=== PATIENT | male | born 1980 | race African-American/Black ===

== ENCOUNTER 2017-01-20 12:06 | Emergency (ER) | payer OTHER ==
[~2017-01-20] VITALS: Ht 175.3 cm; Wt 90.9 kg
[2017-01-20 14:22] VITALS: BP 135/83
[2017-01-20 14:33] LABS: APPEARANCE,URINE CLEAR (CLEAR); GLUCOSE, URINE (UA) NEGATIVE (NEGATIVE); KETONES,URINE NEGATIVE (NEGATIVE); LEUKOCYTE ESTERASE ,URINE NEGATIVE (NEGATIVE); OCCULT BLOOD,URINE SMALL (NEGATIVE); PROTEIN,URINE NEGATIVE (NEGATIVE)
[2017-01-20 14:34] LABS: SQUAMOUS EPITHELIAL CELL,UR Few /LPF (None Seen); WBC,URINE None Seen /HPF (0-5)
== END 2017-01-20 14:54 | disposition home or self-care (01) ==
LOC: EMS 12:08
DX: A64 Unspecified sexually transmitted disease (principal); F12.90 Cannabis use, unspecified, uncomplicated
CPT/HCPCS: 99283

== ENCOUNTER 2017-04-09 15:54 | Emergency (ER) | payer OTHER | END 2017-04-09 16:16 | disposition left against medical advice (07) | LOC: EMS 15:57 | DX: Z53.21 Procedure and treatment not carried out due to patient leaving prior to being seen by health care provider (principal) ==

== ENCOUNTER 2018-11-01 06:36 | Emergency (ER) | payer MEDICAID, OTHER ==
[~2018-11-01] VITALS: Ht 175.3 cm; Wt 86.4 kg
[2018-11-01 07:45] VITALS: BP 144/84
[2018-11-01] MEDS ORDERED: AZITHROMYCIN 250 MG TABLET PO ONE (07:45)
[2018-11-01] MEDS ORDERED: CefTRIAXone SODIUM 1 GM/VIAL IM ONE (07:45)
== END 2018-11-01 08:26 | disposition home or self-care (01) ==
LOC: EMS 06:36
DX: N34.2 Other urethritis (principal); F12.90 Cannabis use, unspecified, uncomplicated
CPT/HCPCS: 96372; 99283; J0696

== ENCOUNTER 2019-11-14 20:51 | Emergency (ER) | payer SELFPAY ==
[~2019-11-14] VITALS: Ht 175.3 cm; Wt 86.4 kg
[2019-11-14 21:45] VITALS: BP 148/101
[2019-11-14] MEDS ORDERED: IBUPROFEN 600 MG TABLET PO ONE (22:30)
[2019-11-14] MEDS ORDERED: ACETAMINOPHEN 500 MG TABLET PO ONE (22:30)
== END 2019-11-14 23:06 | disposition home or self-care (01) ==
LOC: EMS 21:03
DX: R51 Headache (principal); F17.210 Nicotine dependence, cigarettes, uncomplicated; F12.90 Cannabis use, unspecified, uncomplicated
CPT/HCPCS: 99406

== ENCOUNTER 2019-12-09 18:55 | Emergency (ER) | payer SELFPAY ==
[~2019-12-09] VITALS: Ht 175.3 cm; Wt 86.4 kg
[2019-12-09 18:56] VITALS: BP 147/92
== END 2019-12-09 20:13 | disposition left against medical advice (07) ==
LOC: EMS 18:56
DX: T78.1XXA Other adverse food reactions, not elsewhere classified, initial encounter (principal); Z53.21 Procedure and treatment not carried out due to patient leaving prior to being seen by health care provider; X58.XXXA Exposure to other specified factors, initial encounter

== ENCOUNTER 2019-12-09 21:16 | Emergency (ER) | payer MEDICAID ==
[~2019-12-09] VITALS: Ht 175.3 cm; Wt 86.4 kg
[2019-12-09 22:30] VITALS: BP 127/70
== END 2019-12-09 23:00 | disposition home or self-care (01) ==
LOC: EMS 21:17
DX: T78.1XXA Other adverse food reactions, not elsewhere classified, initial encounter (principal); F19.10 Other psychoactive substance abuse, uncomplicated; X58.XXXA Exposure to other specified factors, initial encounter; Z91.010 Allergy to peanuts

== ENCOUNTER 2020-01-05 10:52 | Emergency (ER) | payer MEDICAID ==
[~2020-01-05] VITALS: Ht 175.3 cm; Wt 84.1 kg
[2020-01-05 11:07] VITALS: BP 132/37
[2020-01-05] MEDS ORDERED: IBUPROFEN 400 MG TABLET PO ONE (11:45)
== END 2020-01-05 12:33 | disposition home or self-care (01) ==
LOC: EMS 10:54
DX: R51 Headache (principal); R42 Dizziness and giddiness; J45.909 Unspecified asthma, uncomplicated; F12.90 Cannabis use, unspecified, uncomplicated; Z91.010 Allergy to peanuts

== ENCOUNTER 2020-02-26 20:37 | Emergency (ER) | payer SELFPAY | END 2020-02-26 20:45 | disposition left against medical advice (07) | LOC: EMS 20:38 | DX: R51 Headache (principal); Z53.21 Procedure and treatment not carried out due to patient leaving prior to being seen by health care provider ==

== ENCOUNTER 2022-02-01 00:16 | Inpatient (IN) | payer OTHER ==
[2022-02-01] VITALS (11 sets, daily range): BP systolic 162–178; BP diastolic 98–115
[~2022-02-01] VITALS: Ht 175.3 cm; Wt 75.0 kg
[2022-02-01 00:50] LABS: BASOPHILS % (AUTO) 2.4 % (0.0-2.0); EOSINOPHILS % (AUTO) 6.5 % (1.0-6.0); HEMATOCRIT 34.5 % (41-53); HEMOGLOBIN 11.5 g/dL (13.5-17.5); MEAN CORPUSCULAR HEMOGLOBIN 30.9 pg (26.0-34.0); MEAN CORPUSCULAR HGB CONC 33.2 G/dL (31.0-37.0); MEAN CORPUSCULAR VOLUME 93 fL (80-100); MONOCYTES # (AUTO) 0.4 K/uL (0.1-1.0); MONOCYTES % (AUTO) 8.5 % (2.0-9.0); NEUTROPHILS # (AUTO) 2.8 K/uL (1.8-7.7); NEUTROPHILS % (AUTO) 60.6 % (40.0-70.0); PLATELET COUNT (AUTO) 163 K/uL (150-450); RED BLOOD CELL COUNT(AUTO) 3.71 MIL/uL (4.50-5.90); RED CELL DISTRIBUTION WIDTH 18.8 % (11.5-14.5)
[2022-02-01 01:00] LABS: INR 1.1 (0.9-1.1); PROTHROMBIN TIME 11.7 SEC (9.4-11.6)
[2022-02-01 01:02] LABS: ALBUMIN 3.6 g/dL (3.4-5.0); BILIRUBIN,TOTAL 0.5 mg/dL (0.1-1.0); CALCIUM, TOTAL 8.3 mg/dL (8.8-10.5); CREATININE 16.86 mg/dL (0.60-1.30); TOTAL PROTEIN, SERUM 7.3 g/dL (6.4-8.2)
[2022-02-01 01:08] LABS: POTASSIUM 6.6 mmol/L (3.5-5.1)
[2022-02-01] MEDS ORDERED: DEXTROSE 50%-WATER 25 GM/50 ML SYRINGE IVP ONE ×2 (01:15→03:30)
[2022-02-01] MEDS ORDERED: INSULIN REGULAR, HUMAN 100 UNITS/ML IVP ONE (01:15)
[2022-02-01] MEDS ORDERED: FUROSEMIDE 40 MG/4 ML VIAL IVP ONE (01:15)
[2022-02-01] MEDS ORDERED: CALCIUM GLUCONATE 1,000 MG in DEXTROSE 5%-WATER 50 ML IV ONE (01:15)
[2022-02-01] MEDS ORDERED: OxyCODONE HCL/ACETAMINOPHEN 5-325 MG TABLET PO ONE (02:15)
[2022-02-01 03:15] LABS: CALCIUM, TOTAL 8.8 mg/dL (8.8-10.5); CREATININE 17.19 mg/dL (0.60-1.30); POTASSIUM 5.7 mmol/L (3.5-5.1)
[2022-02-01 05:26] LABS: GLUCOMETER DEV NAME(LOC) ERT.5; GLUCOSE,POINT OF CARE 84 MG/DL (70-110)
[2022-02-01] MEDS: VITAMIN B COMP/VIT C/FOLIC ACID CAPSULE PO SCH (15:05)
[2022-02-01 20:31] LABS: GLUCOMETER DEV NAME(LOC) ERT.5; GLUCOSE,POINT OF CARE 94 MG/DL (70-110)
[2022-02-01] MEDS ORDERED: IPRATROPIUM BROMIDE 0.5 MG/2.5 ML NEB SOLUTION NEB PRN (23:00)
[2022-02-01] MEDS ORDERED: BISACODYL 10 MG RECTAL RECTAL SUPPOSITORY PR PRN (23:00)
[2022-02-01] MEDS ORDERED: HYDROCODONE/ACETAMINOPHEN 5-325 MG TABLET PO PRN (23:00)
[2022-02-01] MEDS ORDERED: MORPHINE SULFATE 2 MG/ML SYRINGE IVP PRN (23:00)
[2022-02-01] MEDS ORDERED: ONDANSETRON HCL 4 MG/2 ML VIAL IVP PRN (23:00)
[2022-02-01] MEDS ORDERED: ALBUTEROL SULFATE 2.5 MG/0.5 ML NEB SOLUTION NEB PRN (23:00)
[2022-02-01] MEDS ORDERED: MAGNESIUM HYDROXIDE SUSPENSION 30 ML UDCUP PO PRN (23:00)
[2022-02-01] MEDS ORDERED: ZOLPIDEM TARTRATE 5 MG TABLET PO PRN (23:00)
[2022-02-01] MEDS: METOPROLOL TARTRATE 50 MG TABLET PO SCH (23:09)
[2022-02-01] MEDS: CloNIDine HCL 0.1 MG TABLET PO SCH (23:10)
[2022-02-01] MEDS: DOCUSATE SODIUM 100 MG CAPSULE PO SCH (23:10)
[2022-02-01] MEDS: BENZONATATE 100 MG CAPSULE PO SCH (23:10)
[2022-02-01] MEDS: ACETAMINOPHEN 325 MG TABLET PO PRN (23:11)
[2022-02-01] MEDS: HEPARIN SODIUM,PORCINE 5,000 UNITS/ML VIAL SQ SCH (23:59)
[2022-02-02] VITALS (14 sets, daily range): BP systolic 137–174; BP diastolic 75–124
[2022-02-02] MEDS: HEPARIN SODIUM,PORCINE 5,000 UNITS/ML VIAL SQ SCH ×2 (08:00→16:00)
[2022-02-02] MEDS: BENZONATATE 100 MG CAPSULE PO SCH ×2 (08:00→16:00)
[2022-02-02 08:11] LABS: CREATININE 13.61 mg/dL (0.60-1.30); MAGNESIUM 2.2 mg/dL (1.80-2.40); PHOSPHORUS 6.3 mg/dL (2.5-4.9)
[2022-02-02 08:17] LABS: POTASSIUM 6.4 mmol/L (3.5-5.1)
[2022-02-02] MEDS ORDERED: CALCIUM GLUCONATE 100 MG/ML 10 ML IVP ONE (08:45)
[2022-02-02] MEDS ORDERED: DEXTROSE 50%-WATER 25 GM/50 ML SYRINGE IVP ONE (08:45)
[2022-02-02] MEDS ORDERED: INSULIN REGULAR, HUMAN 100 UNITS/ML IVP ONE (08:45)
[2022-02-02] MEDS: CloNIDine HCL 0.1 MG TABLET PO SCH ×2 (09:00→21:00)
[2022-02-02] MEDS ORDERED: PANTOPRAZOLE SODIUM 40 MG/VIAL IVP SCH (09:00)
[2022-02-02] MEDS: METOPROLOL TARTRATE 50 MG TABLET PO SCH ×3 (09:00→22:43)
[2022-02-02] MEDS: VITAMIN B COMP/VIT C/FOLIC ACID CAPSULE PO SCH (09:13)
[2022-02-02] MEDS: DOCUSATE SODIUM 100 MG CAPSULE PO SCH ×2 (09:14→22:43)
[2022-02-02] MEDS ORDERED: NIFEdipine 60 MG ER TABLET PO SCH (21:00)
[2022-02-02] MEDS: ACETAMINOPHEN 325 MG TABLET PO PRN (23:57)
[2022-02-03] MEDS: HEPARIN SODIUM,PORCINE 5,000 UNITS/ML VIAL SQ SCH
[2022-02-03] MEDS: BENZONATATE 100 MG CAPSULE PO SCH
[2022-02-03] MEDS ORDERED: HYDROCODONE/ACETAMINOPHEN 5-325 MG TABLET PO PRN (03:30)
[2022-02-03 07:24] VITALS: BP 126/87
[2022-02-04 06:27] LABS: GLUCOMETER DEV NAME(LOC) 5S.2B; GLUCOSE,POINT OF CARE 124 MG/DL (70-110)
== END 2022-02-03 10:35 | disposition left against medical advice (07) | DRG 194 ==
LOC: EMS 00:20 → 5S 19:58
PROVIDERS: ADMIT Hospitalist; ATTEND Hospitalist
PROC: 5A1D70Z Performance of Urinary Filtration, Intermittent, Less than 6 Hours Per Day (ICD-10-PCS; principal; 2022-02-01)
PROC: 5A1D70Z Performance of Urinary Filtration, Intermittent, Less than 6 Hours Per Day (ICD-10-PCS; 2022-02-02)
DX: I13.2 Hypertensive heart and chronic kidney disease with heart failure and with stage 5 chronic kidney disease, or end stage renal disease (principal); N18.6 End stage renal disease; E87.5 Hyperkalemia; D64.9 Anemia, unspecified; I50.9 Heart failure, unspecified; J45.909 Unspecified asthma, uncomplicated; Z53.29 Procedure and treatment not carried out because of patient's decision for other reasons; Z88.8 Allergy status to other drugs, medicaments and biological substances; Z99.2 Dependence on renal dialysis; Z91.010 Allergy to peanuts
CPT/HCPCS: 71045; 80048; 80053; 82962; 83735; 83880; 84100; 84132; 84484; 85025; 85610; 85730; 87340; 90935; 93005; 99291; C9113; G0378; J0610; J1644; J1815; J1940; J7060; 36415-L1; 36415-TC

== ENCOUNTER 2022-02-08 23:03 | Emergency (ER) | payer OTHER ==
[~2022-02-08] VITALS: Ht 175.3 cm; Wt 75.0 kg
[2022-02-09] VITALS (9 sets, daily range): BP systolic 131–152; BP diastolic 64–85
[2022-02-09 00:48] LABS: EOSINOPHILS % (AUTO) 0.9 % (1.0-6.0); HEMATOCRIT 33.8 % (41-53); HEMOGLOBIN 11.2 g/dL (13.5-17.5); LYMPHOCYTES # (AUTO) 0.8 K/uL (1.0-4.8); LYMPHOCYTES % (AUTO) 16.8 % (22.0-44.0); MEAN CORPUSCULAR HEMOGLOBIN 30.5 pg (26.0-34.0); MEAN CORPUSCULAR VOLUME 92 fL (80-100); MONOCYTES # (AUTO) 0.4 K/uL (0.1-1.0); MONOCYTES % (AUTO) 7.3 % (2.0-9.0); NEUTROPHILS # (AUTO) 3.6 K/uL (1.8-7.7); PLATELET COUNT (AUTO) 252 K/uL (150-450); RED BLOOD CELL COUNT(AUTO) 3.66 MIL/uL (4.50-5.90); RED CELL DISTRIBUTION WIDTH 18.8 % (11.5-14.5)
[2022-02-09 00:59] LABS: ALBUMIN 3.9 g/dL (3.4-5.0); BILIRUBIN,TOTAL 0.4 mg/dL (0.1-1.0); CALCIUM, TOTAL 8.4 mg/dL (8.8-10.5); CREATININE 14.27 mg/dL (0.60-1.30); TOTAL PROTEIN, SERUM 7.8 g/dL (6.4-8.2)
[2022-02-09 01:01] LABS: POTASSIUM 7.2 mmol/L (3.5-5.1)
[2022-02-09] MEDS ORDERED: ALBUTEROL SULFATE 5 MG/ML 20 ML NEB SOLN [BULK] NEB ONE (01:15)
[2022-02-09] MEDS ORDERED: FUROSEMIDE 40 MG/4 ML VIAL IVP ONE (01:15)
[2022-02-09] MEDS ORDERED: CALCIUM GLUCONATE 100 MG/ML 10 ML IVP ONE (01:15)
[2022-02-09] MEDS ORDERED: INSULIN REGULAR, HUMAN 100 UNITS/ML IVP ONE (01:15)
[2022-02-09] MEDS ORDERED: DEXTROSE 50%-WATER 25 GM/50 ML SYRINGE IVP ONE (01:15)
[2022-02-09 01:23] LABS: MAGNESIUM 2.7 mg/dL (1.80-2.40); PHOSPHORUS 5.6 mg/dL (2.5-4.9)
[2022-02-09 02:21] LABS: GLUCOMETER DEV NAME(LOC) ERT.5; GLUCOSE,POINT OF CARE 89 MG/DL (70-110)
[2022-02-09] MEDS ORDERED: ACETAMINOPHEN 325 MG TABLET PO PRN (02:45)
[2022-02-09] MEDS ORDERED: SODIUM POLYSTYRENE SULFONATE 15 GM/60 ML SUSPENSION BOTTLE PO ONE (02:45)
[2022-02-09] MEDS ORDERED: AmLODIPine BESYLATE 5 MG TABLET PO ONE (02:45)
[2022-02-09] MEDS ORDERED: ONDANSETRON HCL 4 MG/2 ML VIAL IVP PRN (02:45)
[2022-02-09 07:32] LABS: CALCIUM, TOTAL 8.2 mg/dL (8.8-10.5); CREATININE 6.63 mg/dL (0.60-1.30); POTASSIUM 3.2 mmol/L (3.5-5.1)
[2022-02-09 07:34] LABS: COVID AG,FIA SOURCE NASOPHARYNGEAL
[2022-02-09] MEDS ORDERED: HEPARIN SODIUM,PORCINE 5,000 UNITS/ML VIAL SQ SCH (08:00)
== END 2022-02-09 09:37 | disposition left against medical advice (07) ==
LOC: EMS 23:05
DX: E87.5 Hyperkalemia (principal); J45.909 Unspecified asthma, uncomplicated; M31.30 Wegener's granulomatosis without renal involvement; N18.6 End stage renal disease; Z99.2 Dependence on renal dialysis; Z91.010 Allergy to peanuts; Z88.8 Allergy status to other drugs, medicaments and biological substances; Z20.822 Contact with and (suspected) exposure to COVID-19
CPT/HCPCS: 36415; 71045; 80048; 80053; 82962; 83735; 83880; 84100; 84484; 85025; 87340; 87426; 93005; 94640; 96372; 96374; 96375; 99291; J0610; J1644; J1815; J1940; 90935; 94644; J7611

== ENCOUNTER 2022-02-16 07:24 | Inpatient (IN) | payer OTHER ==
[~2022-02-16] VITALS: Ht 175.3 cm; Wt 75.5 kg
[2022-02-16] VITALS (12 sets, daily range): BP systolic 154–181; BP diastolic 89–130
[2022-02-16 08:10] LABS: BASOPHILS % (AUTO) 0.5 % (0.0-2.0); EOSINOPHILS % (AUTO) 4.4 % (1.0-6.0); HEMATOCRIT 33.9 % (41-53); HEMOGLOBIN 11.1 g/dL (13.5-17.5); LYMPHOCYTES % (AUTO) 18.9 % (22.0-44.0); MEAN CORPUSCULAR HEMOGLOBIN 30.1 pg (26.0-34.0); MEAN CORPUSCULAR HGB CONC 32.7 G/dL (31.0-37.0); MEAN CORPUSCULAR VOLUME 92 fL (80-100); MONOCYTES # (AUTO) 0.4 K/uL (0.1-1.0); MONOCYTES % (AUTO) 7.9 % (2.0-9.0); NEUTROPHILS # (AUTO) 3.8 K/uL (1.8-7.7); NEUTROPHILS % (AUTO) 68.3 % (40.0-70.0); PLATELET COUNT (AUTO) 225 K/uL (150-450); RED BLOOD CELL COUNT(AUTO) 3.67 MIL/uL (4.50-5.90); RED CELL DISTRIBUTION WIDTH 18.8 % (11.5-14.5)
[2022-02-16 08:26] LABS: INR 1.1 (0.9-1.1); PROTHROMBIN TIME 11.9 SEC (9.4-11.6)
[2022-02-16 08:43] LABS: ALBUMIN 3.4 g/dL (3.4-5.0); BILIRUBIN,TOTAL 0.5 mg/dL (0.1-1.0); CALCIUM, TOTAL 7.5 mg/dL (8.8-10.5); CREATININE 14.53 mg/dL (0.60-1.30); TOTAL PROTEIN, SERUM 6.9 g/dL (6.4-8.2)
[2022-02-16 08:44] LABS: POTASSIUM 7.6 mmol/L (3.5-5.1)
[2022-02-16] MEDS ORDERED: INSULIN REGULAR, HUMAN 100 UNITS/ML IVP ONE (08:45)
[2022-02-16] MEDS ORDERED: CALCIUM GLUCONATE 0.465 MEQ/ML 10 ML VIAL IVP ONE (08:45)
[2022-02-16] MEDS ORDERED: NITROGLYCERIN 2% (1 GM=INCH) PACKET TP ONE (08:45)
[2022-02-16] MEDS ORDERED: FUROSEMIDE 20 MG/2 ML VIAL IVP ONE (08:45)
[2022-02-16] MEDS ORDERED: SODIUM BICARBONATE [ADULT] 8.4% 50 MEQ/50 ML SYRINGE IVP ONE (08:45)
[2022-02-16] MEDS ORDERED: ALBUTEROL SULFATE 2.5 MG/0.5 ML NEB SOLUTION NEB ONE (08:45)
[2022-02-16] MEDS ORDERED: DEXTROSE 50%-WATER 25 GM/50 ML SYRINGE IVP ONE ×3 (08:45→09:30)
[2022-02-16] MEDS ORDERED: SODIUM CHLORIDE 0.9% 1,000 ML ONE (10:35)
[2022-02-16] MEDS ORDERED: CloNIDine HCL 0.1 MG TABLET PO PRN (12:15)
[2022-02-16] MEDS ORDERED: MORPHINE SULFATE 2 MG/ML SYRINGE IVP PRN (15:15)
[2022-02-16] MEDS ORDERED: MAGNESIUM HYDROXIDE SUSPENSION 30 ML UDCUP PO PRN (15:15)
[2022-02-16] MEDS ORDERED: ZOLPIDEM TARTRATE 5 MG TABLET PO PRN (15:15)
[2022-02-16] MEDS ORDERED: ONDANSETRON HCL 4 MG/2 ML VIAL IVP PRN (15:15)
[2022-02-16] MEDS ORDERED: HYDROCODONE/ACETAMINOPHEN 5-325 MG TABLET PO PRN (15:15)
[2022-02-16] MEDS ORDERED: BISACODYL 10 MG RECTAL RECTAL SUPPOSITORY PR PRN (15:15)
[2022-02-16] MEDS ORDERED: ACETAMINOPHEN 325 MG TABLET PO PRN (15:15)
[2022-02-16] MEDS ORDERED: HEPARIN SODIUM,PORCINE 5,000 UNITS/ML VIAL SQ SCH (16:00)
[2022-02-16] MEDS ORDERED: DOCUSATE SODIUM 100 MG CAPSULE PO SCH (21:00)
[2022-02-17] MEDS ORDERED: PANTOPRAZOLE SODIUM 40 MG DR TABLET PO SCH (09:00)
== END 2022-02-16 19:00 | disposition left against medical advice (07) | DRG 194 ==
LOC: EMS 07:24 → 5S 09:37
PROVIDERS: ADMIT Internal Medicine; ATTEND Internal Medicine
PROC: 5A1D70Z Performance of Urinary Filtration, Intermittent, Less than 6 Hours Per Day (ICD-10-PCS; principal; 2022-02-16)
DX: I13.2 Hypertensive heart and chronic kidney disease with heart failure and with stage 5 chronic kidney disease, or end stage renal disease (principal); N17.9 Acute kidney failure, unspecified; D63.1 Anemia in chronic kidney disease; I50.31 Acute diastolic (congestive) heart failure; N18.6 End stage renal disease; E87.5 Hyperkalemia; J45.909 Unspecified asthma, uncomplicated; Z99.2 Dependence on renal dialysis; Z53.29 Procedure and treatment not carried out because of patient's decision for other reasons; Z88.8 Allergy status to other drugs, medicaments and biological substances; Z91.010 Allergy to peanuts
CPT/HCPCS: 71045; 80053; 82550; 83880; 84132; 84484; 85025; 85610; 85730; 87340; 90935; 93005; 99285; J0610; J1815; J1940; J3490; J7030; 36415-L1; 36415-TC; J7613

== ENCOUNTER 2022-07-19 20:29 | Emergency (ER) | payer OTHER ==
[~2022-07-19] VITALS: Ht 175.3 cm; Wt 73.0 kg
[2022-07-19] MEDS ORDERED: CLON0.1T2 PO (20:41)
[2022-07-19] MEDS ORDERED: LOSA-382 PO (20:41)
[2022-07-19] MEDS ORDERED: METO50 PO (20:41)
[2022-07-19] MEDS ORDERED: LOSA100T58 PO (20:41)
[2022-07-19 21:55] LABS: BASOPHILS % (AUTO) 1.2 % (0.0-2.0); EOSINOPHILS % (AUTO) 6.4 % (1.0-6.0); HEMATOCRIT 28.6 % (41-53); HEMOGLOBIN 9.3 g/dL (13.5-17.5); LYMPHOCYTES # (AUTO) 0.9 K/uL (1.0-4.8); LYMPHOCYTES % (AUTO) 23.1 % (22.0-44.0); MEAN CORPUSCULAR HGB CONC 32.6 G/dL (31.0-37.0); MEAN CORPUSCULAR VOLUME 95 fL (80-100); MONOCYTES # (AUTO) 0.2 K/uL (0.1-1.0); MONOCYTES % (AUTO) 5.7 % (2.0-9.0); NEUTROPHILS # (AUTO) 2.5 K/uL (1.8-7.7); NEUTROPHILS % (AUTO) 63.6 % (40.0-70.0); PLATELET COUNT (AUTO) 156 K/uL (150-450); RED BLOOD CELL COUNT(AUTO) 3.02 MIL/uL (4.50-5.90); RED CELL DISTRIBUTION WIDTH 15.4 % (11.5-14.5)
[2022-07-19 22:03] LABS: INR 1.1 (0.9-1.1); MAGNESIUM 2.7 mg/dL (1.80-2.40); PROTHROMBIN TIME 11.8 SEC (9.4-11.6)
[2022-07-19 22:06] LABS: ALBUMIN 3.8 g/dL (3.4-5.0); BILIRUBIN,TOTAL 0.4 mg/dL (0.1-1.0); CALCIUM, TOTAL 8.7 mg/dL (8.8-10.5); TOTAL PROTEIN, SERUM 7.6 g/dL (6.4-8.2)
[2022-07-19 22:11] LABS: CREATININE 31.83 mg/dL (0.60-1.30); POTASSIUM 8.1 mmol/L (3.5-5.1)
[2022-07-19 22:20] LABS: PLATELET MORPHOLOGY COMMENT LARGE PLTS PRESENT
[2022-07-19] MEDS ORDERED: INSULIN REGULAR, HUMAN 100 UNITS/ML IVP ONE (22:30)
[2022-07-19] MEDS ORDERED: ALBUTEROL SULFATE 5 MG/ML 20 ML NEB SOLN [BULK] NEB ONE (22:30)
[2022-07-19] MEDS ORDERED: DEXTROSE 50%-WATER 25 GM/50 ML SYRINGE IVP ONE (22:30)
[2022-07-19] MEDS ORDERED: SODIUM ZIRCONIUM CYCLOSILICATE 5 GM POWDER PACKET PO ONE (22:30)
[2022-07-19] MEDS ORDERED: CALCIUM GLUCONATE 1,000 MG in DEXTROSE 5%-WATER 50 ML IV ONE (22:30)
[2022-07-19] MEDS ORDERED: ZOLPIDEM TARTRATE 5 MG TABLET PO PRN (22:45)
[2022-07-19] MEDS ORDERED: MAGNESIUM HYDROXIDE SUSPENSION 30 ML UDCUP PO PRN (22:45)
[2022-07-19] MEDS ORDERED: MORPHINE SULFATE 2 MG/ML SYRINGE IVP PRN (22:45)
[2022-07-19] MEDS ORDERED: BISACODYL 10 MG RECTAL RECTAL SUPPOSITORY PR PRN (22:45)
[2022-07-19] MEDS ORDERED: ONDANSETRON HCL 4 MG/2 ML VIAL IVP PRN (22:45)
[2022-07-19] MEDS ORDERED: SODIUM POLYSTYRENE SULFONATE 15 GM/60 ML SUSPENSION BOTTLE PO ONE (22:45)
[2022-07-19] MEDS ORDERED: ACETAMINOPHEN 325 MG TABLET PO PRN (22:45)
[2022-07-19] MEDS ORDERED: HYDROCODONE/ACETAMINOPHEN 5-325 MG TABLET PO PRN (22:45)
[2022-07-19 23:08] LABS: COVID AG,FIA SOURCE NASAL SWAB
[2022-07-20] MEDS ORDERED: HEPARIN SODIUM,PORCINE 5,000 UNITS/ML VIAL SQ SCH
[2022-07-20 04:55] LABS: EOSINOPHILS % (AUTO) 7.6 % (1.0-6.0); HEMOGLOBIN 8.4 g/dL (13.5-17.5); LYMPHOCYTES # (AUTO) 0.8 K/uL (1.0-4.8); LYMPHOCYTES % (AUTO) 20.5 % (22.0-44.0); MEAN CORPUSCULAR HEMOGLOBIN 31.2 pg (26.0-34.0); MEAN CORPUSCULAR HGB CONC 33.6 G/dL (31.0-37.0); MEAN CORPUSCULAR VOLUME 93 fL (80-100); MONOCYTES # (AUTO) 0.4 K/uL (0.1-1.0); MONOCYTES % (AUTO) 9.9 % (2.0-9.0); NEUTROPHILS # (AUTO) 2.3 K/uL (1.8-7.7); PLATELET COUNT (AUTO) 153 K/uL (150-450); RED CELL DISTRIBUTION WIDTH 15.7 % (11.5-14.5)
[2022-07-20] MEDS ORDERED: METOPROLOL TARTRATE 50 MG TABLET PO ONE (05:00)
[2022-07-20] MEDS ORDERED: LOSARTAN POTASSIUM 50 MG TABLET PO ONE (05:00)
[2022-07-20] MEDS ORDERED: CloNIDine HCL 0.1 MG TABLET PO ONE (05:00)
[2022-07-20 05:03] LABS: CALCIUM, TOTAL 8.7 mg/dL (8.8-10.5); CREATININE 14.91 mg/dL (0.60-1.30); POTASSIUM 3.8 mmol/L (3.5-5.1)
[2022-07-20 05:16] LABS: PLATELET MORPHOLOGY COMMENT LARGE PLTS PRESENT
[2022-07-20 05:17] VITALS: BP 172/105
[2022-07-20] MEDS ORDERED: METOPROLOL TARTRATE 50 MG TABLET PO SCH (09:00)
[2022-07-20] MEDS ORDERED: DOCUSATE SODIUM 100 MG CAPSULE PO SCH (09:00)
[2022-07-20] MEDS ORDERED: LOSARTAN POTASSIUM 50 MG TABLET PO SCH (09:00)
[2022-07-20] MEDS ORDERED: PANTOPRAZOLE SODIUM 40 MG DR TABLET PO SCH (09:00)
[2022-07-20] MEDS ORDERED: CloNIDine HCL 0.1 MG TABLET PO SCH (09:00)
== END 2022-07-20 06:49 | disposition home or self-care (01) ==
LOC: EMS 20:30
DX: E87.5 Hyperkalemia (principal); I13.2 Hypertensive heart and chronic kidney disease with heart failure and with stage 5 chronic kidney disease, or end stage renal disease; N18.6 End stage renal disease; I50.9 Heart failure, unspecified; J45.909 Unspecified asthma, uncomplicated; M31.30 Wegener's granulomatosis without renal involvement; Z20.822 Contact with and (suspected) exposure to COVID-19; Z98.890 Other specified postprocedural states; Z88.8 Allergy status to other drugs, medicaments and biological substances; Z91.010 Allergy to peanuts; Z99.2 Dependence on renal dialysis
CPT/HCPCS: 99291; 96365; 96375; 87426; 80053; 83735; 83880; 84100; 84484; 85025; 85610; 85730; 87340; 94640; 71045; 93005; 80048; 36415; J1815; Q9967; J7060; J0610; J1644; J7611

== ENCOUNTER 2023-01-14 07:15 | Emergency (ER) | payer OTHER ==
[~2023-01-14] VITALS: Ht 175.3 cm; Wt 75.0 kg
[~2023-01-14 07:15] MED LIST: CLON0.1T2 PO; LOSA-382 PO; LOSA100T58 PO; METO50 PO
[2023-01-14 07:21] VITALS: BP 98/66
[2023-01-14 07:38] LABS: COVID AG,FIA SOURCE NASAL SWAB
== END 2023-01-14 08:28 | disposition home or self-care (01) ==
LOC: EMS 07:15
DX: R55 Syncope and collapse (principal); J45.909 Unspecified asthma, uncomplicated; I10 Essential (primary) hypertension; Z88.8 Allergy status to other drugs, medicaments and biological substances; Z91.010 Allergy to peanuts; Z48.02 Encounter for removal of sutures; Z20.822 Contact with and (suspected) exposure to COVID-19
CPT/HCPCS: 99283

== ENCOUNTER 2023-03-10 05:20 | Emergency (ER) | payer OTHER ==
[~2023-03-10] VITALS: Ht 175.3 cm; Wt 81.0 kg
[~2023-03-10 05:20] MED LIST changes: -LOSA100T58 PO
[2023-03-10 05:27] VITALS: BP 150/89; PULSE 70; RESP 16; TEMP 97.9
[2023-03-10] MEDS ORDERED: TRANEXAMIC ACID 1,000 MG/10 ML VIAL TP ONE (06:30)
[2023-03-10] MEDS ORDERED: OXYMETAZOLINE HCL 0.05% 15 ML NASAL SPRAY NASAL ONE (06:30)
== END 2023-03-10 07:43 | disposition left against medical advice (07) ==
LOC: EMS 05:22
DX: R04.0 Epistaxis (principal); J45.909 Unspecified asthma, uncomplicated; I10 Essential (primary) hypertension; Z98.890 Other specified postprocedural states; Z88.6 Allergy status to analgesic agent; Z91.010 Allergy to peanuts; Z88.8 Allergy status to other drugs, medicaments and biological substances
CPT/HCPCS: 99284; 30901; J3490

== ENCOUNTER 2023-04-26 04:40 | Emergency (ER) | payer OTHER ==
[~2023-04-26] VITALS: Ht 175.3 cm; Wt 75.0 kg
[2023-04-26] MEDS ORDERED: TADA20TA43 PO (04:47)
[2023-04-26 04:57] VITALS: TEMP 98
[2023-04-26 06:53] VITALS: BP 130/82; PULSE 80; RESP 16
== END 2023-04-26 07:00 | disposition home or self-care (01) ==
LOC: EMS 04:41
DX: S60.021A Contusion of right index finger without damage to nail, initial encounter (principal); S60.031A Contusion of right middle finger without damage to nail, initial encounter; J45.909 Unspecified asthma, uncomplicated; I11.0 Hypertensive heart disease with heart failure; I50.9 Heart failure, unspecified; F12.90 Cannabis use, unspecified, uncomplicated; Z98.890 Other specified postprocedural states; Z88.6 Allergy status to analgesic agent; Z88.8 Allergy status to other drugs, medicaments and biological substances; Z91.010 Allergy to peanuts; Y08.89XA Assault by other specified means, initial encounter; Y93.89 Activity, other specified; Y92.89 Other specified places as the place of occurrence of the external cause; Y99.8 Other external cause status
CPT/HCPCS: 99283

== ENCOUNTER 2024-11-12 10:28 | Emergency (ER) | payer OTHER ==
[~2024-11-12] VITALS: Ht 177.8 cm; Wt 73.6 kg
[~2024-11-12 10:28] MED LIST changes: +CINA60TA4 PO; -CLON0.1T2 PO; -LOSA-382 PO; +LOSA100T59 PO; +TADA20TA43 PO
[2024-11-12 10:29] VITALS: BP 187/94; PULSE 102; RESP 18; TEMP 98; O2SAT 99
[2024-11-12] MEDS: TRANEXAMIC ACID 1,000 MG/10 ML VIAL TP ONE (11:22)
[2024-11-12] MEDS: OXYMETAZOLINE HCL 0.05% 15 ML NASAL SPRAY NASAL ONE ×2 (11:22→12:29)
[2024-11-12] MEDS ORDERED: CLON1PAT14 TD (12:32)
== END 2024-11-12 13:02 | disposition home or self-care (01) ==
LOC: EMS 10:28
DX: R04.0 Epistaxis (principal); I13.2 Hypertensive heart and chronic kidney disease with heart failure and with stage 5 chronic kidney disease, or end stage renal disease; I50.9 Heart failure, unspecified; N18.6 End stage renal disease; J45.909 Unspecified asthma, uncomplicated; F12.90 Cannabis use, unspecified, uncomplicated; Z88.6 Allergy status to analgesic agent; Z88.8 Allergy status to other drugs, medicaments and biological substances; Z79.899 Other long term (current) drug therapy
CPT/HCPCS: 99284; 30901; J3490